=== PATIENT | female | born 1970 | race African-American/Black ===

== ENCOUNTER 2024-08-21 16:08 | Emergency (ER) | payer MEDICAID ==
[~2024-08-21] VITALS: Ht 172.7 cm; Wt 90.7 kg
[2024-08-21 16:22] VITALS: O2SAT 100
[2024-08-21 16:24] VITALS: BP 143/84; PULSE 88; RESP 16; TEMP 98.4; O2SAT 100
== END 2024-08-21 21:45 | disposition left against medical advice (07) ==
LOC: ER 16:08
DX: M54.2 Cervicalgia (principal); Z53.21 Procedure and treatment not carried out due to patient leaving prior to being seen by health care provider